=== PATIENT | female | born 2000 | race Caucasian/White ===

== ENCOUNTER 2024-01-08 16:49 | Outpatient (CLI) | payer OTHER, SELFPAY ==
--- NOTE | 2024-01-08 17:00 | US_ITS ---
Patient: DERICK LOMELI Facility:?[facility] Patient ID:?[id number] Site Patient ID:?[id number]. Site :?[id number] Study:?US-OB Pelvis OB<14wks-01/08/2024 5:42:35 PM Ordering Physician:?Brittany Drew Final Report: INDICATION: Dating and viability. LMP 11/13/2023. COMPARISON: None. TECHNIQUE: Real-time deras-scale imaging of the pelvis was performed. FINDINGS: Sonographic imaging demonstrates a single living intrauterine gestation. The embryo has a regular cardiac rate measuring 165 beats per minute. The embryo`s crown-rump length measures 2.0 cm which corresponds to a gestational age of 8 weeks 4 days with sonographic due date 08/15/2024. There is a normal-appearing yolk sac. The placenta has not yet developed. No evidence of a perigestational hemorrhage. The cervix is closed and measures 4.0 cm in length. The right ovary measures 3.9 x 2.2 x 2.3 cm and the left ovary measures 2.3 x 1.3 x 1.7 cm. Corpus luteal cyst in the right ovary. Trace free fluid in the right adnexa. IMPRESSION: 1. Single living intrauterine gestation corresponding to a gestational age of 8 weeks 4 days with sonographic due date 08/15/2024. 2. The clinical gestational age by LMP is 8 weeks 0 days. Dictated by Juliane Nelson MD @ 01/09/2024 3:26:55 AM Signed by:?Juliane Nelson MD @01/09/2024 3:26:55 AM (Electronic Signature)
== END 2024-01-08 16:50 | disposition home or self-care (01) ==
PROVIDERS: Visit Provider Registered Nurse
DX: Z34.91 Encounter for supervision of normal pregnancy, unspecified, first trimester (principal); Z3A.08 8 weeks gestation of pregnancy
CPT/HCPCS: 76817

== ENCOUNTER 2024-01-08 17:52 | Outpatient (CLI) | payer OTHER, SELFPAY ==
[2024-01-08 22:28] LABS: Chlamydia DNA Amplified* NOT DETECTED (No Detected); GC DNA Amplified* NOT DETECTED (No Detected)
== END 2024-01-08 17:53 | disposition home or self-care (01) ==
PROVIDERS: Visit Provider Registered Nurse
DX: Z34.91 Encounter for supervision of normal pregnancy, unspecified, first trimester (principal); Z3A.08 8 weeks gestation of pregnancy
CPT/HCPCS: 82565; 82570; 84156; 84450; 84460; 84520; 84550; 86592; 86703; 86704; 86706; 86762; 86787; 86803; 86850; 86900; 86901; 87086; 87340; 87491; 87591

== ENCOUNTER 2024-01-16 06:45 | Outpatient (CLI) | payer OTHER, SELFPAY | END 2024-01-16 06:46 | disposition home or self-care (01) | LOC: NFLDREF 01-18 10:33 | PROVIDERS: Visit Provider Registered Nurse | DX: Z34.90 Encounter for supervision of normal pregnancy, unspecified, unspecified trimester (principal) | CPT/HCPCS: 82570; 84156 ==

== ENCOUNTER 2024-04-01 15:01 | Outpatient (CLI) | payer OTHER, SELFPAY ==
--- NOTE | 2024-04-01 15:00 | CRLHL7_ITS ---
For Patients: As a result of the 21st Century Cures Act, medical imaging exams and procedure reports are released immediately into your electronic medical record. You may view this report before your referring provider. If you have questions, please contact your health care provider. US OB CLINICAL HISTORY: Encounter for supervision of normal . THOMAS by LMP: 08/19/2024. GA: 20 w, 0 d. COMPARISON: 01/08/2024. FINDINGS: position: Breech. Cervix: Visualized. Technique: Transabdominal. Length of closed cervix: 4.0 cm. Placenta/cord: Posterior. Placenta tip to internal OS: 5.7 cm. Umbilical Cord: 3-vessel cord. Placenta insertion: Central. Amniotic Fluid: 3.4 cm SDP SURVEY: Observed Structures Cerebellum: Yes. 2.3 cm; 22 w 5 d. Cisterna Magna: Yes. 7.3 mm. Nuchal Fold: Yes. 4.5 mm. Lateral Ventricle: Yes. 7.4 mm. CSP: Yes. Midline Falx: Yes. Choroid Plexus: Yes. Spine: Sacrum, L-spine. Stomach: Yes. Abd Cord Insertion: Yes. Urinary Bladder: Yes. Kidneys: Yes. Diaphragm: Yes. Nose/lips: Yes. Orbital view: Yes. Profile: Yes. Upper Extremities: Yes. Lower Extremities: Yes. Hands: Yes. Feet: Yes. Four-Chamber Heart: No. LVOT: Yes. RVOT: No. 3VV: Yes. 3VTV: Yes. BPD: 4.8 cm. 20 w 3 d, 70 percent. HC: 17.6 cm. 20 w 1 d, 48 percent. AC: 18.2 cm. 23 w 1 d, greater than 97 percent. FL: 3.5 cm. 20 w 6 d, 72 percent. FL/AC: 18.91 percent. HC/AC Ratio: 0.97. Heart rate: 154 beats per minute. age by this US: 21 w 3 d. THOMAS by this US: 08/09/2024. EFW: 453 g. Weight: 1 lbs, 0 oz. Percentile by THOMAS: > 97 percent. IMPRESSION: 1. Estimated weight is greater than 97th percentile. 2. Spine, four-chamber heart, and RVOT not well seen due to positioning. Recommend follow up with couple weeks. 3. Otherwise normal anatomic survey. Troy Mena M.D. Body/Diagnostic Radiologist [email or web address] SP/Dictated by: Troy Mena MD @ 04/02/2024 3:17:00 PM (Electronically Signed)
== END 2024-04-01 15:02 | disposition home or self-care (01) ==
LOC: US 15:02
PROVIDERS: Visit Provider Advanced Practice Midwife
DX: Z34.92 Encounter for supervision of normal pregnancy, unspecified, second trimester (principal); Z3A.20 20 weeks gestation of pregnancy
CPT/HCPCS: 76805

== ENCOUNTER 2024-05-07 07:10 | Outpatient (CLI) | payer OTHER, SELFPAY ==
--- NOTE | 2024-05-07 07:15 | CRLHL7_ITS ---
For Patients: As a result of the Century Cures Act, medical imaging exams and procedure reports are released immediately into your electronic medical record. You may view this report before your referring provider. If you have questions, please contact your health care provider. INDICATION: screening follow up COMPARISON: 04/01/2024 TECHNIQUE: Real-time deras-scale imaging of the pelvis was performed. FINDINGS: heart rate 150 beats per minute. Placenta is posterior. position is breech. Normal amniotic fluid volume with single deepest pocket 6.5 cm. Normal spine. RVOT not well visualized in the axial plane. IMPRESSION: Normal spine. Incomplete visualization of the RVOT in the transverse plane. Good visualization of the heart structures elsewhere. Can not exclude cardiac pathology. Level 2 ultrasound recommended. Dictated by Montrell Camilo MD @ 05/08/2024 9:31:21 AM (Electronically Signed)
== END 2024-05-07 07:11 | disposition home or self-care (01) ==
LOC: US 07:11
PROVIDERS: Visit Provider Advanced Practice Midwife
DX: Z34.90 Encounter for supervision of normal pregnancy, unspecified, unspecified trimester (principal)
CPT/HCPCS: 76816

== ENCOUNTER 2024-05-27 16:14 | Outpatient (CLI) | payer OTHER, SELFPAY | END 2024-05-27 16:15 | disposition home or self-care (01) | PROVIDERS: Visit Provider Advanced Practice Midwife | DX: Z34.93 Encounter for supervision of normal pregnancy, unspecified, third trimester (principal); Z3A.28 28 weeks gestation of pregnancy | CPT/HCPCS: 82565; 82570; 84156; 84450; 84460; 84520; 86592 ==

== ENCOUNTER 2024-06-04 07:55 | Outpatient (CLI) | payer OTHER, SELFPAY | END 2024-06-04 07:56 | disposition home or self-care (01) | LOC: NFLDREF 06-05 10:43 | PROVIDERS: Visit Provider Advanced Practice Midwife | DX: R73.09 Other abnormal glucose (principal); Z34.93 Encounter for supervision of normal pregnancy, unspecified, third trimester | CPT/HCPCS: 82951; 82952 ==

== ENCOUNTER 2024-07-22 16:29 | Outpatient (CLI) | payer OTHER, SELFPAY | END 2024-07-22 16:30 | disposition home or self-care (01) | LOC: NFLDREF 07-24 08:34 | PROVIDERS: Visit Provider Advanced Practice Midwife | DX: Z34.03 Encounter for supervision of normal first pregnancy, third trimester (principal); Z3A.36 36 weeks gestation of pregnancy | CPT/HCPCS: 87081; 87653 ==

== ENCOUNTER 2024-08-16 23:02 | Inpatient (IN) | payer OTHER, SELFPAY ==
[2024-08-16 20:10] VITALS: BP 113/71; PULSE 90; TEMP 36.5
[2024-08-16 23:33] VITALS: BMI 29.3
--- NOTE | 2024-08-16 23:42 | P.LDBA_ITS ---
Subjective History of Present Illness Date Seen: 08/16/24 Narrative: Tena is being admitted to Labor and Delivery for labor. She is a 24 year old at 39.4 weeks gestation. Her full history and physical was dictated by Delonte Gutiérrez CNM on 07/29/24. Please see this for details. Tena reports contractions have been going on most of the day, now stronger and more regular. She reports small amount of leaking last evening about 2129, enough to wet her underwear but then no leaking today until just moving from triage room to labor room. Specific Issues/Plans G 1 P 0 : Agustín H&P completed by Олег on 07/29/2024 # Failed 1hr GTT. 3hr GTT: passed all values # Anemia. Started PO iron. # MFM for incomplete heart views. Completed 05/26/2025. No anomalies detected with limited US. Never had pap. Declined at first OB. Will need PP pap. Flu: Recommended, declines Covid: Recommended, declines TDAP: 06/10/2024 RSV: offer at 36 weeks, declined OB - Problem Based A/P Additional Plan (1) Pain during labor: Status: Acute Plan Assessment:?? at 39.4 weeks gestation?? GBS negative? Patient is coping well with challenges of labor.?? Labor type: Spontaneous, Early labor? Category 1 FHR pattern.? complicated by: # Failed 1hr GTT. 3hr GTT: passed all values # Anemia. Started PO iron. # MFM for incomplete heart views. Completed 05/26/2025. No anomalies detected with limited US. Plan:?? * ?Admit to L & D? * IV access: SL, pt planning epidural * Monitoring per policy: intermittant ? * Candidate for analgesia of choice.? Planning epidural for pain management * Expectant management at this time ? * Patient encouraged to reposition and ambulate to promote physiologic labor and . * Anticipate ? Delivery/Labor/Induction Plan Plan: expectant management OB Exam Physical Exam Vital signs: Temp Pulse BP 97.7 F 90 113/71 08/16/24 20:10 08/16/24 20:10 08/16/24 20:10 Narrative: Vitals Reviewed Constitutional:? Alert and oriented x3 HEENT:? Normocephalic, atraumatic Neck:? Supple Lungs:? Clear to auscultation bilaterally Heart:? Regular rate and rhythm, no murmur, rub or gallop Abdomen:? Soft, nontender, and gravid. Vertex by Curtis's, confirmed with cervical exam. Extremities:? No edema or erythema Cervix: 2 cm/80%/+1 station/vertex, per RN, posterior Membranes: questionable SROM on 08/15/24 at 2130, clear fluid NST: 130 bpm/moderate variability/+accelerations/-decelerations/mild/moderate contractions Detailed Labor and Delivery Exam Patient Gravid: Yes
[2024-08-17] VITALS (82 sets, daily range): BP systolic 76–130; BP diastolic 42–81; PULSE 67–105; RESP 16; TEMP 36.6–37.1; O2SAT 80–100
[2024-08-17 01:32] LABS: Hematocrit 38.3 % (33.0-51.0); Hemoglobin* 13.3 gm/dL (12.0-16.0); Immature Granulocytes Pct Auto 0.4 %; Lymphocytes Percent Auto 7.5 % (20-44); Mean Corpuscular HGB Conc 35 gm/dL (32-36); Mean Corpuscular Hemoglobin 32 pg (26-34); Mean Corpuscular Volume 93 fL (80-100); Monocytes Percent Auto 2.4 % (0.0-11.0); Neutrophils Percent Auto 89.7 % (42.0-72.0); Platelet Count* 249 K/uL (140-440); RDW Coefficient of Variation % 12.5 % (11.5-15.5); Red Blood Count 4.13 m/uL (4.00-5.20); White Blood Count* 18.51 K/uL (4.50-11.00)
[2024-08-17 01:33] LABS: Slide Review Reflex No
[2024-08-17] MEDS: LACTATED RINGERS 1000 ML 1,000 ML IV (02:55)
--- NOTE | 2024-08-17 03:20 | PM.OBPNL ---
Subjective Date Seen: 08/17/24 Narrative: ?Tena is coping well with labor pain/contractions. ?Agustín is with her for support. ?She has requested an epidural for comfort and pain management.?She has been coping well without pain medications up to this point. Would like to defer cervical exams until after her epidural is placed and she is more comfortable. Objective Exam: VSS, afebrile General Appearance:? Calm, cooperative. ?No acute distress. ? Psychiatric Exam: Alert and oriented, appropriate affect Abdomen: Gravid Ctx: ?Q 2-4 min apart. ? ?Moderate ? FHTs: ?125 by doppler, continuous EFM being placed now with epidural placement SVE: Deferred Membranes: ?questionable SROM Vital Signs: Last Vital Signs Temp 98.1 F 08/17/24 00:56 Pulse 78 08/17/24 03:03 BP 111/69 08/17/24 03:03 Plan Plan: Assessment:?? at 39.5 wks gestation?? GBS negative Patient is coping well with challenges of labor.?? Labor type: Spontaneous, Early labor? ? complicated by: # Failed 1hr GTT. 3hr GTT: passed all values # Anemia. Started PO iron. # MFM for incomplete heart views. Completed 05/26/2025. No anomalies detected with limited US. Labor complicated by: None Plan:?? Continue with routine intrapartum cares as ordered.?? Patient encouraged to move and change positions to promote physiologic labor and .?? Epidural placement per anesthesia Anticipate progress to NVD. ?
[2024-08-17] MEDS: ROPIVACAINE 0.2% 100 ml 100 ML 12 MG EPIDURAL (03:44)
[2024-08-17] MEDS: LIDOCAINE 2% (PF) 5 ML VIAL EPIDURAL (03:44)
--- NOTE | 2024-08-17 03:54 | P.ANBPRC_ITS ---
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, unspecified (ICD- 10) Family History (Updated 07/29/24 @ 13:32 by Shanelle Gutiérrez CNM) Maternal Grandfather Cardiovascular disease Maternal Grandmother Cardiovascular disease Paternal Grandmother Cardiovascular disease Social History What is your current living situation?: I presently have a place to live Problems where you live: no known problems In the past 12 months, utilities in danger of being shut off: no In past 12 months, lack of transportation kept you from medical appts, meetings, work, or getting things needed for daily living: no In the past 12 mos, have been you worried that your food would run out before you had money to buy more?: never true In the past 12 mos, the food you bought just didn't last and you didn't have money to buy more?: never true Smoking Status: Never smoker How often does anyone, including family, friends and others, physically hurt you : never How often does anyone, including family, friends and others, insult or talk down to you: never How often does anyone, including family, friends and others, threaten you with harm: never How often does anyone, including family, friends and others, scream or curse at you: never Little interest or pleasure in doing things: not at all Feeling down, depressed, or hopeless: not at all Meds Home Medications and Allergies Home Medications ?Medication ?Instructions ?Recorded ?Confirmed ?Type calcium carbonate (Calcium 500) 500 mg PO QDAY 01/08/24 08/16/24 History cholecalciferol (vitamin D3) 10 10 mcg PO QDAY 01/08/24 08/16/24 History mcg (400 unit) capsule docosahexaenoic acid 200 mg See Rx Instructions PO .COMPLEX 01/08/24 08/16/24 History capsule ( DHA) ferrous sulfate 325 mg (65 mg 325 mg PO Q OTHER DAY 06/10/24 08/16/24 History iron) tablet (Feosol) Allergies Allergy/AdvReac Type Severity Reaction Status Date / Time No Known Drug Allergies Allergy Verified 08/16/24 20:32 Results Labs Labs: Laboratory Results - last 24 hr 08/17/24 01:20 WBC 18.51 H RBC 4.13 Hgb 13.3 Hct 38.3 MCV 93 MCH 32 MCHC 35 RDW Coeff of Reny 12.5 Plt Count 249 Neut % (Auto) 89.7 H Lymph % (Auto) 7.5 L Josephine % (Auto) 2.4 Eos % (Auto) 0.0 Baso % (Auto) 0.0 Neut # (Auto) 16.60 H Lymph # (Auto) 1.40 Josephine # (Auto) 0.40 Eos # (Auto) 0.00 Baso # (Auto) 0.00 Abs Immat Gran (auto) 0.10 Imm/Tot Granulo (auto) 0.4 Vital Signs Vital Signs: Last Vital Signs Temp 98.1 F 08/17/24 00:56 Pulse 90 08/17/24 03:49 BP 105/60 08/17/24 03:49 Pulse Ox 100 08/17/24 03:54 Weight: 87.543 kg Height: 172.72 cm Anesthesia Procedures Epidural Insertion Patient Location: OB Start Time: 03:18 Stop Time: 04:18 Start Date: 08/17/24 Stop Date: 08/17/24 Reason for Block: procedure for pain Patient Position: sitting Performed By: Camila Bean Preanesthetic Checklist: IV checked, risks and benefits discussed, monitors and equipment checked, pre-op evaluation, timeout performed and anesthesia consent Prep: chlorhexidine gluconate Monitoring: blood pressure monitoring, continuous pulse oximetry and heart rate Approach: midline Vertebral Space: lumbar (1-5) Epidural Technique: KIRILL saline Needle Type: Tuohy needle Injection Technique: continuous catheter (continuous catheter) Needle gauge: 17 Needle Length (cm): 10 cm Needle Insertion Depth (cm): 7 Catheter Gauge: 19 Catheter Type: multi-orifice Catheter at skin depth (cm): 15 Test Dose Result: negative and lidocaine 1.5% with epinephrine 1 to 200,000
[2024-08-17] MEDS: LACTATED RINGERS 1000 ML 1,000 ML 75 ML IV (03:58)
--- NOTE | 2024-08-17 04:29 | PM.OBPNL ---
Subjective Date Seen: 08/17/24 Narrative: ?Tena is coping well with labor pain/contractions. ?Agustín is with her for support. ?She is now comfortable with her epidural for pain management.?Cervical exam done now that she is not in pain, cervix changed from 3.5cm/90% with bulging bag to 5cm/100%/+1 after AROM. Reviewed option of AROM along with risks and benefits with patient prior to rupture. AROM done with informed consent, clear/pink fluid seen. Objective Exam: VSS, afebrile General Appearance:? Calm, cooperative. ?No acute distress. ? Psychiatric Exam: Alert and oriented, appropriate affect Abdomen: Gravid Ctx: ?Q 2-3 min apart. ? ? ?Strong FHTs: ?Baseline: 135. ? ? Variability: moderate. ?Accels: +. ? ?Decels: ?none. SVE: 5/100/+1 Membranes: ?AROM clear/pink fluid Vital Signs: Last Vital Signs Temp 98.1 F 08/17/24 00:56 Pulse 101 H 08/17/24 04:19 BP 107/65 08/17/24 04:19 Pulse Ox 98 08/17/24 04:14 Assessment Amniotic Membrane Status: AROM Plan Plan: Assessment:?? at 39.5 wks gestation?? GBS neg Patient is coping well with challenges of labor.?? Labor type: Spontaneous, Active labor? Category 2 FHR pattern.? complicated by: # Failed 1hr GTT. 3hr GTT: passed all values # Anemia. Started PO iron. # MFM for incomplete heart views. Completed 05/26/2025. No anomalies detected with limited US. Labor complicated by: none Plan:?? Continue with routine intrapartum cares as ordered.?? Patient encouraged to move and change positions to promote physiologic labor and .??staffing and scheduling coordinator to help with position changes PRN. Epidural in place for pain management. Anticipate progress to NVD. ?
--- NOTE | 2024-08-17 07:59 | PM.OBPNL ---
Subjective Date Seen: 08/17/24 Narrative: ?Tena is coping well with labor pain/contractions. ?Rosalio is with her for support. ?She would like to continue with her epidural for comfort and pain management.?She has requested to have the epidural turned down as her legs are so numb that she cannot feel anything and can only wiggle her toes. DIRECTOR BUSINESS MANAGEMENT was called to adjust settings. Objective Exam: VSS, afebrile General Appearance:? Calm, cooperative. ?No acute distress. ? Psychiatric Exam: Alert and oriented, appropriate affect Abdomen: Gravid Ctx: ?Q 3-4 min apart. ? ? ?Strong FHTs: ?Baseline:125. ? ? Variability: Moderate. ?Accels: +. ? ?Decels: ?variables with contractions periodic. SVE: 8/100/+1 Membranes: ?AROM 3.5hrs, clear Vital Signs: Last Vital Signs Temp 98.1 F 08/17/24 00:56 Pulse 77 08/17/24 07:49 BP 105/66 08/17/24 07:49 Pulse Ox 98 08/17/24 04:14 Contractions Monitor mode: External Assessment Assessment: active labor Station: +1 Amniotic Membrane Status: AROM Status: Category ll Plan Plan: Assessment:?? at 39.6 wks gestation?? GBS negative Patient is coping well with challenges of labor.?? Labor type: Spontaneous, Active labor? Category 2 FHR pattern.? complicated by: # Failed 1hr GTT. 3hr GTT: passed all values # Anemia. Started PO iron. # MFM for incomplete heart views. Completed 05/26/2025. No anomalies detected with limited US. Labor complicated by: none? Plan:?? Pt to be turned and side lying release done both sides Anesthesia to adjust epidural Continue with routine intrapartum cares as ordered.?? Patient helped to move and change positions to promote physiologic labor and .?? Anticipate progress to NVD. ?
--- NOTE | 2024-08-17 10:28 | PM.OBPNL ---
Subjective Date Seen: 08/17/24 Narrative: ?Tena is coping well with labor pain/contractions. ?Agustín is with her for support. ?She would like to continue with her epidural for comfort and pain management.?She has been making slow material movers the last 2 hours from 8cm to 9cm. Recommended we place an IUPC and start low dose Pitocin for augmentation at this time. Risks and benefits were reviewed with patient and partner and they agreed to this plan. Objective Exam: VSS, afebrile General Appearance:? Calm, cooperative. ?No acute distress. ? Psychiatric Exam: Alert and oriented, appropriate affect Abdomen: Gravid Ctx: ?Q 2-3 min apart. ? ? ?Strong FHTs: ?Baseline: 125. ? ? Variability: moderate. ?Accels: +. ? ?Decels: ?-. SVE: 9/100/+1 Membranes: ?AROM 6hrs Vital Signs: Last Vital Signs Temp 98.1 F 08/17/24 00:56 Pulse 105 H 08/17/24 10:18 BP 92/43 L 08/17/24 10:18 Pulse Ox 98 08/17/24 04:14 Contractions Monitor mode: External Assessment Assessment: active labor Station: +1 Amniotic Membrane Status: AROM Status: Category l Plan Plan: Assessment:?? at 39.6wks gestation?? GBS neg Patient is coping well with challenges of labor.?? Labor type: Spontaneous, Active labor? Category 1 FHR pattern.? complicated by: # Failed 1hr GTT. 3hr GTT: passed all values # Anemia. Started PO iron. # MFM for incomplete heart views. Completed 05/26/2025. No anomalies detected with limited US. Labor complicated by: none Plan:?? IUPC placement and low dose IV Pitocin per protocol for augmentation Continue with routine intrapartum cares as ordered.?? Patient encouraged to move and change positions to promote physiologic labor and . staff appraiser to help with position changes?? Epidural in place, pt reports more sensation with contractions now Anticipate progress to NVD. ?
[2024-08-17] MEDS: OXYTOCIN 30 unit/500 ML in NS 30 UNIT/500 ML BAG IVPB (10:36)
--- NOTE | 2024-08-17 12:33 | PM.OBPNL ---
Subjective Date Seen: 08/17/24 Narrative: ?Tena is coping well with labor pain/contractions. ?Agustín is with her for support. ?She would like to continue with her epidural for comfort and pain management.?Her labor pattern has not shown adequate MVU's over the last 2 hours. IV Pitocin is running now at 4mu/hr and has been increased slowly approximately every 30 minutes. She has more feeling in her legs since the epidural rate was adjusted by anesthesia but does not feel a lot of pressure. Discussed plan of repositioning her to hands and knees for a time while continuing with IV Pitocin titration. If no change in next few hours would recommend we have OB come evaluate if head can be repositioned. Has felt consistently OT with last checks. Objective Exam: VSS, afebrile General Appearance:? Calm, cooperative. ?No acute distress. ? Psychiatric Exam: Alert and oriented, appropriate affect Abdomen: Gravid Ctx: ?Q 1-3 min apart. ? ctxs mostly?50-55mmHg, most MVU's has been 94 mmHg FHTs: ?Baseline: 135. ? ? Variability: moderate. ?Accels: +. ? ?Decels: ?-. SVE: deferred Membranes: ?AROM clear 8 hrs Vital Signs: Last Vital Signs Temp 98.2 F 08/17/24 11:56 Pulse 78 08/17/24 12:18 BP 102/58 L 08/17/24 12:18 Pulse Ox 98 08/17/24 04:14 Contractions Monitor mode: External Assessment Assessment: active labor Station: +1 Amniotic Membrane Status: AROM Status: Category l Plan Plan: Assessment:?? at 39.5 wks gestation?? GBS neg Patient is coping well with challenges of labor.?? Labor type: Spontaneous onset now Augmented, Active labor? Category 1 FHR pattern.? complicated by: # Failed 1hr GTT. 3hr GTT: passed all values # Anemia. Started PO iron. # MFM for incomplete heart views. Completed 05/26/2025. No anomalies detected with limited US. Labor complicated by: Slow active phase of labor requiring augmentation Plan:?? Hands and knees positioning now Continue titration of IV Pitocin per protocol Continue with routine intrapartum cares as ordered.?? Patient encouraged to move and change positions to promote physiologic labor and .?? Epidural in place for pain management to continue per anesthesia Anticipate progress to NVD. ?
[2024-08-17] MEDS: ROPIVACAINE 0.2% 100 ml 100 ML 10 MG EPIDURAL (13:01)
--- NOTE | 2024-08-17 13:34 | PM.OBPNL ---
Subjective Date Seen: 08/17/24 Narrative: ?Tena is coping well with labor pain/contractions. Her epidural is needing a new bag of medication hung so she is having more pressure at this time. ALLERGIST IMMUNOLOGIST is contacted and will be here soon to address. ?Agustín is with her for support. She was repositioned back to her left side and is complaining of more vaginal pressure with contractions. SVE is complete +2. Objective Exam: VSS, afebrile General Appearance:? Calm, cooperative. ?No acute distress. ? Psychiatric Exam: Alert and oriented, appropriate affect Abdomen: Gravid Ctx: ?Q 2-3 min apart. ? FHTs: ?Baseline: 130. ? ? Variability: moderate. ?Accels: +. ? ?Decels: ?-. SVE: Complete +2 Membranes: ?AROM 9hrs clear fluid Vital Signs: Last Vital Signs Temp 98.2 F 08/17/24 11:56 Pulse 84 08/17/24 13:18 BP 101/58 L 08/17/24 13:18 Pulse Ox 98 08/17/24 04:14 Contractions Monitor mode: External Assessment Station: +1 Amniotic Membrane Status: AROM Status: Category l Plan Plan: Assessment:?? at 39.5 weeks gestation?? GBS neg Patient is coping well with challenges of labor.?? Labor type: Augmented, Active labor? Category 1 FHR pattern.? complicated by: # Failed 1hr GTT. 3hr GTT: passed all values # Anemia. Started PO iron. # MFM for incomplete heart views. Completed 05/26/2025. No anomalies detected with limited US. Labor complicated by: Slow progression in active phase requiring augmentation Plan:?? Anesthesia to address new medication bag Proceed with pushing shortly thereafter Continue with routine intrapartum cares as ordered.?? Patient encouraged to move and change positions to promote physiologic labor and .?? Anticipate progress to NVD. ?
[2024-08-17] MEDS: LIDOCAINE 1 % PF 30 ML INJECTION (17:11)
--- NOTE | 2024-08-17 17:30 | W.PM.VAGDE_ITS ---
OB Procedure Vag Delivery Mother Details Mother Details: The patient is a 24 year-old, 1, Para 0, admitted on 08/16/24 at 39.4 weeks gestation. : 1 Para: 1 Weeks Gestation: 39.5 Admission Date: 08/16/24 Additional Details Amniotic Membrane Status: AROM Amniotic Membrane Rupture Date: 08/17/24 Amniotic Membrane Rupture Time: 04:25 Amniotic Membrane Fluid Description: Clear Analgesia/Anesthesia Type: Epidural Waterbirth: No Pitcoin: Yes Intrapartal Events: Labor Augmentation Delivery augmentation: rupture of membranes and pitocin Labor Onset: 04:25 Complete: 13:29 Pushin:47 Heart: heart tones during second stage were Category II moderate variability with variable decelerations. Delivery Details Delivery Date: 08/17/24 Delivery Time: 16:15 Route of delivery: Infant Gender: Male Viability: Alive; Heart Rate Present Position at Delivery: OA Delivery Details: 24?y.o?at 39.5 weeks.? Tena arrived in spontaneous labor. She reported a small amount of leaking fluid noticed around 2130 on 08/15/24, while moving to labor room again reported this leaking. There was scant pink/ clear fluid seen on her pad. She labored and was coping well with contractions then requested an epidural for pain. Was found to be 4 cm with bulging bag of mccracken after placement. AROM for moderate amount of clear/pink fluid at 0425. She progressed to 8 cm and slowly progressed to 9 cm over 2-3 hours. Decision made at that time to place [facility] and start Pitocin augmentation. Pitocin was titrated up slowly over approximately 2.5 hours with little change. Patient was turned to hand and knees position and Pitocin was increased by 2mu/hr at next increase. Approximately 20 minutes later she was found to be complete and +2 station. ? ? She became complete at 1329.??She pushed in right and left tilt positions effectively.? Spontaneous vaginal delivery at 1615 of?a viable?male infant.??Delivered in vertex OA position with hand by face near maternal perineum.??Shoulders delivere d easily.? Spontaneous cry noted.?? placed on maternal abdomen.??Cord?was clamped and cut after a 5+ minute delay.??Nose and mouth were bulb suctioned.??? Shoulder dystocia: no? Nuchal cord: no? Meconium stained?fluid: no? Water : no? ? ? 8 at 1 minute and 9 at 5 minutes.? Weight is pending. ? Placenta delivered spontaneously and?complete?at 1626 with a?3 vessel?cord.?? Bleeding controlled with fundal massage and?pitocin?for AMTSL.? ? Lacerations:? Decision to repair after shared decision making with patient. 2nd degree perineal tear repaired with 3-0?vicryl.??Small periurethral laceration, between urethra and just below clitoris was repaired with 4.0 vicryl in usual manner. ? Bleeding?post delivery?was: moderate. ?The fundus was firm to palpation.? Blood loss: 300?mL.? Blood loss measurement type: QBL? ? ? Sponge,?lap?and needles counts are correct.? Mother and infant were stable after delivery.? 1 Minute Interval Total Score: 8 5 Minute Interval Total Score: 9 Additional Details Shoulder Dystocia: No Placenta Delivery Time: 16:26 Placental Delivery Description: Spontaneous Delivery repair: Vicryl Procedure Done: Global Blood Loss: 300 Laceration: Perineal - 2nd Degree Blood Loss Measurement Type: QBL Bakri Used: No Sponge/Need Count Correct: Yes Cord Vessel Description: 3 Vessels Event Summary Status: Mother and infant were stable after delivery. Disposition: floor
[2024-08-17] MEDS: IBUPROFEN 600 MG TABLET PO (20:08)
[2024-08-18 02:00] VITALS: BP 111/78; PULSE 80; RESP 16; TEMP 36.5; O2SAT 98
[2024-08-18] MEDS: IBUPROFEN 600 MG TABLET PO ×3 (03:30→19:07)
[2024-08-18 06:30] VITALS: BP 100/67; PULSE 78; RESP 16; TEMP 36.6; O2SAT 98
--- NOTE | 2024-08-18 08:15 | P.OBPN_ITS ---
OB - PN:Subj Subjective Date Seen: 08/18/24 Narrative: ?The patient feels well.? The pain is well controlled with current medications.? She has no new complaints.? Urinary output is adequate and she is voiding without difficulty.? Has a good appetite, is tolerating a general diet, is pass ing flatus, and has had a bowel movement.? Has small amount of rubra lochia.? She is ambulating well. She is and reports it is going slowly as he seems a bit tired yet. He did have some amniotic fluid suctioned out this morning, so she thinks he will be more interested soon.? OB - PN: Obj Exam Physical Exam: Vital signs: Temp Pulse Resp BP Pulse Ox O2 Del Method 97.8 F 78 16 100/67 98 Room Air 08/18/24 06:30 08/18/24 06:30 08/18/24 06:30 08/18/24 06:30 08/18/24 06:30 08/18/24 06:30 Narrative: GENERAL APPEARANCE:? normal affect, alert, no distress MOOD:? appropriate CHEST:? clear to auscultation HEART:? regular rate and rhythm ABDOMEN:? soft, non-tender the uterine fundus is 2 cm below Umbilicus, Midline and is appropriate for the stage of recovery. PERINEUM:? deferred EXTREMITIES:? normal and minimal edema OB - PN: A/P Delivery Assessment and Plan (1) (normal spontaneous vaginal delivery): Status: Acute (2) care and examination of lactating mother: Status: Acute (3) Second degree perineal laceration: Status: Acute Plan day: 1 Plan: routine care Comments: PP day #1 Routine care May see as desired Anticipate discharge 08/19/2024
[2024-08-18 10:25] VITALS: BP 108/72; PULSE 88; RESP 16; TEMP 36.7; O2SAT 95
[2024-08-18] MEDS: DOCUSATE SODIUM 100 MG CAPSULE PO (10:37)
--- NOTE | 2024-08-18 12:50 | PM.ANPOST ---
Post Anesthesia Note Post Anesthesia Note Patient seen: Inpatient Respiratory Status: adequate Cardiovascular Status: adequate Mental Status: baseline Pain: adequate Temp: baseline Anesthetic awareness: no Complications: none Follow care: none
[2024-08-18 14:30] VITALS: BP 111/71; PULSE 92; RESP 16; TEMP 36.6; O2SAT 95
[2024-08-18 22:02] VITALS: BP 108/70; PULSE 80; RESP 16; TEMP 36.6; O2SAT 96
[2024-08-19] MEDS: IBUPROFEN 600 MG TABLET PO ×2 (03:04→09:05)
[2024-08-19 03:07] VITALS: BP 97/62; PULSE 76; RESP 16; TEMP 36.4; O2SAT 96
[2024-08-19 07:45] VITALS: BP 99/57; PULSE 78; RESP 16; TEMP 36.8; O2SAT 97
--- NOTE | 2024-08-19 08:00 | P.DS_ITS ---
DS: Providers Provider Date Seen: 08/19/24 Date of admission: 08/16/24 23:02 Primary care physician: Not a Local Provider Admitting Clinician: Benedict Joseph CNM Attending Physician on discharge: Arpita TEJADA Date of Discharge: 08/19/24 DS: Diagnosis Discharge Diagnosis (1) Second degree perineal laceration: Status: Acute (2) care and examination of lactating mother: Status: Acute (3) (normal spontaneous vaginal delivery): Status: Acute Exam Narrative: Exam Narrative: GENERAL APPEARANCE:? normal affect, alert, no distress MOOD:? appropriate CHEST:? clear to auscultation HEART:? regular rate and rhythm ABDOMEN:? soft, non-tender the uterine fundus is 2 cm below Umbilicus, Midline and is appropriate for the stage of recovery. PERINEUM:?deferred to nursingl. EXTREMITIES:? normal and moderate edema Const: Vital Signs, click to edit/add: Vital Signs - 24 hr 08/18/24 10:25 08/18/24 14:30 08/18/24 22:02 Temperature 98.0 F 97.9 F 97.8 F Pulse Rate [Pulse Oximeter] 88 92 80 Respiratory Rate 16 16 16 Blood Pressure [Ri ght Arm] 108/72 111/71 108/70 Pulse Oximetry 95 95 96 Oxygen Delivery Me thod Room Air Room Air Room Air 08/19/24 03:07 Temperature 97.6 F Pulse Rate [Pulse Oximeter] 76 Respiratory Rate 16 Blood Pressure [Ri ght Arm] 97/62 Pulse Oximetry 96 Oxygen Delivery Me thod Room Air OB - DS: Summary Hospital Course Hospital Course: Tena is a 24 y.o. G 1 P 1 who was admitted to [facility] for active labor.? She had a NVD that was uncomplicated. The patient feels well.? The pain is well controlled with current medications.? She has no new complaints.? She is breast feeding and reports things are going well. the patient has done well.? Vitals have been stable.? She has remained afebrile.? Has a good appetite, is tolerating a general diet.? She is voiding without difficulty.? She is passing gas and has not had a bowel movement.? She is ambulating and denies any dizziness.? Has small amount of rubra lochia. She is planning condoms/NFP for prevention.? ?? Problems: anemia in ?? plan:? Discharge home with baby.? Follow up in 2 weeks and 6 weeks.? , may see if needed? Hgb 13.3. Can stop iron supplementation? Labs WNL or stable with trending? Call for signs/symptoms of preeclampsia? ? Peripartum Data Infant delivery method: Vaginal Laceration description: Perineal - 2nd Degree Episiotomy description: None complications: none Infant Gender: Male Discharge Plan: Home Status at Discharge Overall status at discharge: patient is progressing back to baseline Time Spent with Patient Time attestation: Total time spent providing and/or coordinating discharge services: Time spent: Less than 30 minutes Discharge Plan Discharge Disposition: Home, Self-Care Date of Admission: 08/16/24 23:02 Attending Provider on Discharge: Shanelle Gutiérrez Primary Care Provider: Provider,Not a Local Discharge Medications: New acetaminophen 500 mg Tablet 1,000 mg PO Q6H PRNQty: 60 0RF docusate sodium 100 mg Capsule 100 mg PO DAILY Qty: 60 0RF ibuprofen 600 mg Tablet 600 mg PO Q6H PRNQty: 60 0RF Continued DHA 200 mg capsule See Rx Instructions PO .COMPLEX Rx Instructions: as directed orally; cholecalciferol (vitamin D3) 10 mcg (400 unit) capsule 10 mcg PO QDAY Discontinued ferrous sulfate [Feosol] 325 mg (65 mg iron) tablet 325 mg PO Q OTHER DAY calcium carbonate [Calcium 500] 500 mg calcium (1,250 mg) tablet,chewable 500 mg PO QDAY Discharge Orders: Discharge Order (Routine); Ordered 08/19/24 Ordered By: Shanelle Gutiérrez Patient Education: OB [facility], OB Vaginal/Breast Feeding Additional Instructions: Discharge instructions were reviewed with the patient including signs and symptoms of infection and home going medications Nothing vaginally for 6 weeks: no tampons or intercourse Do not drive while taking narcotic pain medication(s) Off Work or School for 6 weeks Symptoms to report to doctor: * Bleeding that saturates more than one pad per hour * Passing clots larger than the size of a golf ball * Pain not relieved by prescribed medication * Fever above 100.4 degrees Fahrenheit * A foul vaginal odor * Difficulty in emotions, mood, and functions * Thoughts of hurting yourself and/or * Painful, reddened area in your breast * Any drainage, redness, or tenderness in your IV/epidural site * Severe headache that doesn't improve after taking medications * Changes in vision, including temporary loss of vision, blurred vision, and/or light sensitivity * Upper abdominal pain (usually under ribs on the right side) * Decrease in urination or painful, frequent urinating * Chest pain * Shortness of breath * Tenderness or pain with redness and/swelling in the calf(s) of your leg 2-week visit: discuss feeding concerns, review control options and screen for anxiety/depression. 6-week visit for an annual exam. consultation services are available to all mothers and babies for the first year after delivery.? To make an appointment, please call [phone]. For pain control of perineum, breast and pelvic pain, take 600 mg Ibuprofen every 6 hours as needed by mouth or 1000 mg acetaminophen (Tylenol) every 6 hours by mouth as needed. You can alternate these so you are taking something every 3 hours as needed. A heating pad can also be used for your abdomen or breasts. Take stool softeners up to twice daily until stools are soft and regular. Wean as indicated. Activity Level: Activity as Tolerated and No strenuous activity Discharge Diet: Regular Follow Up Appointments: [facility] [Provider Group] Forms: MyHealth Info Instructions
[2024-08-19] MEDS: DOCUSATE SODIUM 100 MG CAPSULE PO (09:05)
[2024-08-19 15:14] LABS: Rapid Plasma Reagin (RPR) Non Reactive (Non Reactive)
== END 2024-08-19 12:24 | disposition home or self-care (01) | DRG 807 ==
LOC: OB OUT 23:02 → OB 23:02
PROVIDERS: Admitting Provider Advanced Practice Midwife; Visit Provider Advanced Practice Midwife
DX: O99.02 Anemia complicating childbirth (principal); Z37.0 Single live birth; D64.9 Anemia, unspecified; O70.1 Second degree perineal laceration during delivery; Z3A.39 39 weeks gestation of pregnancy
CPT/HCPCS: 01967; 36415; 84112; 85025; 86592; A9270; J2003; J2795; J7120

== ENCOUNTER 2024-09-29 14:38 | Outpatient (CLI) | payer OTHER, SELFPAY ==
[2024-10-02 02:01] LABS: HPV Source Cervix; HPV, High Risk by TMA Not Detected
== END 2024-09-29 14:39 | disposition home or self-care (01) ==
PROVIDERS: Visit Provider Physician Assistant
DX: Z12.4 Encounter for screening for malignant neoplasm of cervix (principal)
CPT/HCPCS: 87624; 87625; 88141; 88142

== ENCOUNTER 2024-11-18 08:03 | Outpatient (CLI) | payer OTHER, SELFPAY | END 2024-11-18 08:04 | disposition home or self-care (01) | PROVIDERS: Visit Provider Registered Nurse | DX: N63.20 Unspecified lump in the left breast, unspecified quadrant (principal) | CPT/HCPCS: 76642 ==

== ENCOUNTER 2025-09-15 12:56 | Outpatient (CLI) | payer OTHER, SELFPAY ==
--- NOTE | 2025-09-15 13:00 | CRLHL7_ITS ---
For Patients: As a result of the Cures Act, medical imaging exams and procedure reports are released immediately into your electronic medical record. You may view this report before your referring provider. If you have questions, please contact your health care provider. OB ULTRASOUND INDICATION: Dating and viability. TECHNIQUE: Real time grayscale imaging of the fetus was performed. Transabdominal. Patient denied transvaginal imaging. LMP: 07/14/2025. THOMAS by LMP: 04/20/2026. GA: 9 w, 0 d. Previous US: No. CRL: 2.6 cm. 9 w 3 d. THOMAS: 04/17/2026. FHR: 188 BPM. Gestational sac: 4.2 cm. Appears within normal limits. Yolk sac: 3.9 mm. Appears within normal limits. Right ovary: 3.7x 2.5 x 2.8 cm. CL. Left ovary: N/V. IMPRESSION: 1. Single living intrauterine measures 9 weeks 3 days with sonographic due date 04/17/2026. 2. Corpus luteal cyst right ovary measures 2.4 x 2.2 x 2.3 cm. Montrell Camilo M.D. Diagnostic Radiologist [email or web address] TONYA/aristeo alberts/Dictated by: Montrell Camilo MD @ 09/15/2025 3:18:00 PM (Electronically Signed)
== END 2025-09-15 12:57 | disposition home or self-care (01) ==
LOC: US 12:56
PROVIDERS: Visit Provider Advanced Practice Midwife
DX: O34.81 Maternal care for other abnormalities of pelvic organs, first trimester (principal); N83.11 Corpus luteum cyst of right ovary; Z3A.09 9 weeks gestation of pregnancy
CPT/HCPCS: 76801